=== PATIENT | female | born 1985 ===

== ENCOUNTER 2019-04-14 10:01 | Inpatient (IN) ==
[~2019-04-14 10:01] MED LIST: Famotidine 20 MG/2 ML VIAL IVP PRN; Lidocaine 1% 20 ML MDV INFILT PRN; Metoclopramide 10 MG/2 ML VIAL IVP PRN; Naloxone 0.4 MG/ML INJ IVP PRN; Ondansetron 4 MG/2 ML VIAL IVP PRN
[2019-04-14] MEDS ORDERED: Ringers Solution, Lactated 1,000 ML IVC SCH (10:15)
[2019-04-14 10:24] LABS: Basophils % 0.2 %; Eosinophils % 0.3 %; Hemoglobin 12.9 g/dL (11.5-15.4); Immature Granulocytes % 0.3 % (0-4); Lymphocytes # 1.6 K/mcL (0.6-4.6); Lymphocytes % 14.1 %; Mean Corpuscular HGB Conc 33.9 g/dL (31.6-35.5); Mean Corpuscular Hemoglobin 28.1 pg (28.0-33.3); Mean Corpuscular Volume 82.8 fL (83.0-100.0); Mean Platelet Volume 11.9 fL (9.4-12.4); Monocytes # 0.6 K/mcL (0.0-1.3); Monocytes % 5.6 %; Neutrophils # 9.2 K/mcL (1.6-8.9); Platelet Count 196 K/mcL (140-400); Red Blood Count 4.59 M/mcL (3.82-4.97); Segmented Neutrophils % 79.5 %; White Blood Count 11.5 K/mcL (4.3-11.1)
[2019-04-14] MEDS ORDERED: Oxytocin 20 units/ LR 1000 mL 20 UNIT/1,000 ML BAG IVC ONE ×3 (10:27→13:30)
[2019-04-14 10:36] LABS: Amphetamine Screen,Urine Negative ng/mL (Cutoff=1000); Barbiturate Screen,Urine Negative ng/mL (Cutoff=200); Benzodiazepines Screen,Urine Negative ng/mL (Cutoff=200); Cannabinoid Screen,Urine Negative ng/mL (Cutoff = 50); Cocaine Screen,Urine Negative ng/mL (Cutoff= 300); Opiate Screen,Urine Negative ng/mL (Cutoff=300); Phencyclidine Screen,Urine Negative ng/mL (Cutoff=25)
--- NOTE | 2019-04-14 11:19 | OB/GYN History & Physical ---
Date of Encounter: 04/14/19 Time of Encounter: 11:11 Assessment and Plan (1) 37 weeks gestation of Current visit: Yes Status: Acute Admit for labor GBS negative Patient has plan Anticipate vaginal delivery POC per consult with Dr Webb History of Present Illness Chief complaint: Laboring HPI: Ms. Clark is a 33 year old at 37 weeks and 6 days that presents to labor and delivery laboring since 0330 this morning. She states that her water broke at 0330. Her care was adequate and by the [facility]. She states positive movement. She denies headache, vision changes, epigastric pain, and vaginal bleeding. She would like to deliver unblocked and with minimal intervention. Labs: GBS neg RPR Neg Hep B Neg Blood type A- Obstetrical History - Pregnancies : 3 Para: 1 Term: 1 : 0 Ab's: 2 Livin Medications and Allergies Vitamin Tablet 1 tab PO DAILY 04/14/19 [History] Allergy/AdvReac Type Severity Reaction Status Date / Time penicillin G Allergy See Verified 04/14/19 09:51 Comments Review of System OB All systems PM: reviewed and no additional remarkable complaints except as stated Exam - Constitutional Constitutional: well developed, well nourished, no acute distress, average body habitus - HEENT HEENT: Normocephaly, Mucus Membranes Moist - Neck Neck exam: full ROM - Lungs Respiratory exam: CTAB - Cardiovascular Cardiovascular exam: RRR, +S1, +S2 - Abdomen Abdomen: Present: bowel sounds normal, gravid, non tender - Extremities Extremities exam: normal capillary refill, normal inspection, radial pulses palpable and symmetrical Deep Tendon Reflex Grade: 2+ Normal - Vulva Vulva: bilateral: normal - Vagina Vagina: Present: normal moisture - Cervix Dilation: 7 Effacement: 100 Station: 0 - Anus/Rectum Anus/Rectum: Present: normal perianal skin Results Result Diagrams: 04/14/19 09:50 Abnormal lab results WBC 11.5 K/mcL (4.3-11.1) H 04/14/19 09:50 MCV 82.8 fL (83.0-100.0) L 04/14/19 09:50 9.2 K/mcL (1.6-8.9) H 04/14/19 09:50 All other labs normal. - VTE Reasons for not Prescribing Prophylaxis: Treatment not Indicated - Low risk for VTE
--- NOTE | 2019-04-14 11:36 | OB/GYN Procedure Note ---
Delivery - Delivery Date: 04/14/19 Provider: Maine Ibarra Intrapartum events: precipitous labor- <3hr (labored at home starting at 0330 ) Delivery induction: none Delivery monitor: external FHT, external uterine Anesthesia: none Quantitated Blood Loss: 50 - (s) A Infant Delivery Date: 04/14/19 Delivery Time: 10:43 Presentation: vertex Position: WAQAR Route of delivery: Gender: Male Viability: Viable Pounds: 8 Ounces: 5 Weight Gram: 3.77 kg at 1 minute: 9 at 5 mins: 10 Shoulder Dystocia: not encountered Specimens collected: cord blood Placenta: spontaneous Cord: 3 umbilical vessels - Repair Episiotomy: none Laceration Description: Labial (periclitoral) - Complications Delivery complications: none Delivery comments: Patient progressed to complete and began spontaneous pushing to of viable, vigorous male infant in the WAQAR position. No nuchal, no meconium, and no shoulder dystocia encountered. Infant placed on maternal abdomen, warmed, dried, and stimulated. Cord double clamped and cut with the assistance of FOB after pulsations ceased. Apgars 9 and 10 at one and five minutes of age respectively. Placenta delivered spontaneously and appears grossly intact with 3 vessel cord. Upon perineal inspection a left periclitoral laceration was noted and hemostatic; left to heal by second intention. EBL 50mL. Patient and infant in skin to skin for [address] Webb notified of delivery - Disposition Mom disposition: stable in LDR [place] disposition: stable in LDR
[2019-04-14] MEDS ORDERED: Oxytocin 20 units/ LR 1000 mL 20 UNIT/1,000 ML BAG IVC SCH (13:30)
[2019-04-14] MEDS ORDERED: Ibuprofen 600 MG TABLET PO PRN (13:30)
[2019-04-14] MEDS ORDERED: Acetaminophen 325 MG TABLET PO PRN (13:30)
[2019-04-14] MEDS ORDERED: Benzocaine/Menthol 56 GM AEROSOL SPRAY TP PRN (13:30)
[2019-04-15 07:49] VITALS: BP 119/69
--- NOTE | 2019-04-15 08:19 | Discharge Summary ---
Date of Encounter: 04/15/19 Time of Encounter: 08:17 - Discharge Diagnosis (1) Vaginal delivery Priority: Primary Status: Acute Comments: Stable meeting all PP milestones, pain well managed,bleeding minimal, breast feeding, desires discharge - Discharge Medications Prescriptions: New Ibuprofen [Motrin] 600 mg PO Q6HR PRN tablet PRN Reason: Cramping Benzocaine/Menthol Kelley [Dermoplast Kelley] 1 appl TP QID PRN aerosol PRN Reason: See Comments Docusate [Colace] 100 mg PO BID capsule Continued Vitamin Tablet 1 tab PO DAILY Home Medications: Vitamin Tablet 1 tab PO DAILY 04/14/19 [History] Benzocaine/Menthol Kelley [Dermoplast Kelley] 1 appl TP QID PRN aerosol 04/15/19 [Rx] Docusate [Colace] 100 mg PO BID capsule 04/15/19 [Rx] Ibuprofen [Motrin] 600 mg PO Q6HR PRN tablet 04/15/19 [Rx] Allergies/Adverse Reactions: Allergy/AdvReac Type Severity Reaction Status Date / Time penicillin G Allergy See Verified 04/14/19 09:51 Comments Data Procedures and tests throughout hospitalization: Laboratory Tests 04/14/19 04/14/19 04/14/19 09:50 09:50 11:55 WBC 11.5 H RBC 4.59 Hgb 12.9 Hct 38.0 MCV 82.8 L MCH 28.1 MCHC 33.9 RDW 14.0 Plt Count 196 MPV 11.9 Immature Gran % 0.3 Seg Neutrophils % 79.5 Lymphocytes % 14.1 Monocytes % 5.6 Eosinophils % 0.3 Basophils % 0.2 Neutrophils # 9.2 H Lymphocytes # 1.6 Monocytes # 0.6 Eosinophils # 0.0 Basophils # 0.0 Urine Opiates Screen Negative Ur Buprenorphine Scrn Negative Ur Barbiturates Screen Negative Ur Phencyclidine Scrn Negative Ur Amphetamines Screen Negative U Benzodiazepines Scrn Negative Urine Cocaine Screen Negative U Marijuana (THC) Screen Negative Ur Drug Screen Interp See Below Baby's Blood Type O RH NEGATIVE Mother's Blood Type A RH NEGATIVE Rhogam Indicated NO Labs on day of discharge: Labs from last 24 hours 04/14/19 04/14/19 04/14/19 11:55 09:50 09:50 WBC 11.5 H RBC 4.59 Hgb 12.9 Hct 38.0 MCV 82.8 L MCH 28.1 MCHC 33.9 RDW 14.0 Plt Count 196 MPV 11.9 Immature Gran % 0.3 Seg Neutrophils % 79.5 Lymphocytes % 14.1 Monocytes % 5.6 Eosinophils % 0.3 Basophils % 0.2 Neutrophils # 9.2 H Lymphocytes # 1.6 Monocytes # 0.6 Eosinophils # 0.0 Basophils # 0.0 Urine Opiates Screen Negative Ur Buprenorphine Scrn Negative Ur Barbiturates Screen Negative Ur Phencyclidine Scrn Negative Ur Amphetamines Screen Negative U Benzodiazepines Scrn Negative Urine Cocaine Screen Negative U Marijuana (THC) Screen Negative Ur Drug Screen Interp See Below Baby's Blood Type O RH NEGATIVE Mother's Blood Type A RH NEGATIVE Rhogam Indicated NO Date of admission: 04/14/19 10:01 Consults: 04/14/19 13:30 Consult to Director Special Education [CONS] Routine Comment: Vaginal delivery, consult needed Discharging clinician: Savanna Rutledge Anticipated date of discharge: 04/15/19 - Patient Status Disposition: Home, Self-Care Condition: Good Functional capacity at discharge: independent ambulation Overall status at discharge: patient is progressing back to baseline - Discharge Instructions Follow Up With: Maine Ibarra CNM [Advanced Practice Nurse] - - Diet and Activity Activity: resume usual activities as tolerated Diet: regular diet Hospital Course Reason for admission: active labor, IUP at term Delivery: Episiotomy: none Laceration: other (labial) complications: none Discharge diagnosis: IUP at term delivered baby: male Hospital course: Delivery - Delivery Date: 04/14/19 Provider: Maine Ibarra Intrapartum events: precipitous labor- <3hr (labored at home starting at 0330 ) Delivery induction: none Delivery monitor: external FHT, external uterine Anesthesia: none Quantitated Blood Loss: 50 - (s) A Infant Delivery Date: 04/14/19 Infant Delivery Time: 10:43 Presentation: vertex Position: WAQAR Route of delivery: Gender: Male Viability: Viable Pounds: 8 Ounces: 5 Weight Gram: 3.77 kg at 1 minute: 9 at 5 mins: 10 Shoulder Dystocia: not encountered Specimens collected: cord blood Placenta: spontaneous Cord: 3 umbilical vessels - Repair Episiotomy: none Laceration Description: Labial (periclitoral) - Complications Delivery complications: none Delivery comments: Patient progressed to complete and began spontaneous pushing to of viable, vigorous male in the WAQAR position. No nuchal, no meconium, and no shoulder dystocia encountered. Infant placed on maternal abdomen, warmed, dried, and stimulated. Cord double clamped and cut with the assistance of FOB after pulsations ceased. Apgars 9 and 10 at one and five minutes of age respectively. Placenta delivered spontaneously and appears grossly intact with 3 vessel cord. Upon perineal inspection a left periclitoral laceration was noted and hemostatic; left to heal by second intention. EBL 50mL. Patient and in skin to skin for [address] Webb notified of delivery - Disposition Mom disposition: stable in PP and appropriate for discharge Time Attestation: Total time spent providing and/or coordinating discharge services: Time Spent: Less than 30 minutes Exam - Constitutional Vitals: Temp Pulse Resp BP Pulse Ox 98.3 F 69 16 119/69 97 04/15/19 07:48 04/15/19 07:48 04/15/19 07:48 04/15/19 07:48 04/15/19 07:48 General appearance IM: A&O X 3 - Respiratory Respiratory exam: Present: CTAB - Cardiovascular Cardiovascular exam IM: Present: RRR - GI/Abdominal GI/Abdominal exam IM: soft Incision: normal - Uterine Tone: Firm Uterus Position: At Umbilicus - Extremities Exam Extremities exam IM: Present: normal capillary refill, normal inspection - Neurological Exam Neurological exam: normal gait, oriented X3 - Psychiatric Additional comments: reports good mood
[2019-04-15] MEDS ORDERED: Prenatal Vit/FA 1 EACH TABLET PO SCH (09:00)
== END 2019-04-15 13:00 | disposition home or self-care (01) | DRG 807 ==
LOC: 1NENULAB → 1NENUOBS 13:29
PROVIDERS: ADMIT Advanced Practice Midwife; ATTEND Advanced Practice Midwife